=== PATIENT | female | born 1940 | race Caucasian/White ===

== ENCOUNTER 2024-02-10 14:40 | Inpatient (IN) | payer OTHER ==
[~2024-02-10] VITALS: Ht 149.9 cm; Wt 71.0 kg
[~2024-02-10 14:40] MED LIST: AML5T PO; ASCO500T11 PO; FER325T PO; LOSA-534 PO; PANT40TA2 PO; SUCR1TAB31 OR
[2024-02-10 16:51] LABS: Hematocrit 45.5 % (36.0-46.0); Hemoglobin 15.1 g/dL (12.2-16.2); Mean Corpuscular Hemoglobin 29.5 pg (28.0-32.0); Mean Corpuscular Hgb Conc. 33.1 g/dL (32.0-36.0); Mean Corpuscular Volume 89.3 fL (80.0-100.0); Red Cell Distribution Width 16.5 % (11.8-14.3); White Blood Cell 21.7 10^3/uL (4.4-10.8)
[2024-02-10 17:03] LABS: Basophils % (manual) 0 (0.0-2.0); Blast Cells 0; Eosinophils % (manual) 0 (0-7); Metamyelocytes % 0; Myelocytes % 0; Promyelocytes % 0; Reactive Lymphocytes 0
[2024-02-10 17:09] LABS: Alanine Aminotransferase 16 U/L (7-40); Albumin 3.4 g/dL (3.2-4.8); Alkaline Phosphatase 141 U/L (46-116); Anion Gap 9 (5-15); Aspartate Aminotransferase 18 U/L (13-40); BUN/Creatinine Ratio 13.8 (10.0-20.0); Blood Urea Nitrogen 50 mg/dL (9-23); Calcium 9.4 mg/dL (8.5-10.1); Carbon Dioxide 21 mmol/L (20-30); Chloride 97 mmol/L (98-107); Glucose 97 mg/dL (74-106); Potassium 3.9 mmol/L (3.5-5.1); Sodium 127 mmol/L (136-145)
[2024-02-10 17:10] LABS: Bilirubin, Total 0.4 mg/dL (0.2-1.0); Total Protein 5.9 g/dL (5.7-8.2)
[2024-02-10] MEDS: SODIUM CHLORIDE 0.9% 1,000 ML IV ONE (17:45)
[2024-02-10 18:50] VITALS: O2SAT 96
[2024-02-10 18:51] LABS: Band Neutrophils % (manual) 40; Lymphocytes % (manual) 3 (10.0-50.0); Monocytes % (manual) 7 (0-12); Platelet Estimate Increased
[2024-02-10 18:52] LABS: Anisocytosis Slight
[2024-02-10] MEDS: metroNIDAZOLE 500MG/100ML 100 ML IV ONE (19:08)
[2024-02-10] MEDS: cefTRIAXone 1GM/50ML D5W 50 ML IV ONE (19:08)
[2024-02-10] MEDS ORDERED: NITROGLYCERIN 0.4 MG SL TAB SL PRN (19:15)
[2024-02-10] MEDS ORDERED: MORPHINE SULFATE INJ 2 MG/ml SYRG IV PRN (19:15)
[2024-02-10] MEDS ORDERED: HYDROcodone-ACET 5/325MG TAB PO PRN (19:15)
[2024-02-10] MEDS ORDERED: ONDANSETRON HCL 4 MG/2 ML VIAL IV PRN (19:15)
[2024-02-10 20:00] VITALS: PULSE 88; RESP 21; O2SAT 100
[2024-02-10] MEDS: SODIUM CHLORIDE 0.9% 1,000 ML IV SCH (21:13)
[2024-02-10] MEDS: PIPERACILLIN-TAZOB 3.375GM 100 ML IV SCH (22:36)
[2024-02-11] MEDS: SODIUM CHLORIDE 0.9% 1,000 ML IV ONE (00:45)
[2024-02-11 05:43] LABS: Basophils # (auto) 0 10 ^3/uL (0-0.2); Basophils % (auto) 0.2 % (0.0-2.0); Eosinophils # (auto) 0 10 ^3/uL (0-0.8); Eosinophils % (auto) 0.4 % (0.0-7.0); Hematocrit 43.4 % (36.0-46.0); Hemoglobin 14.3 g/dL (12.2-16.2); Lymphocytes # (auto) 1.1 10 ^3/uL (0.4-5.4); Lymphocytes % (auto) 8.6 % (10.0-50.0); Mean Corpuscular Hgb Conc. 32.9 g/dL (32.0-36.0); Mean Corpuscular Volume 88.2 fL (80.0-100.0); Monocytes # (auto) 1.2 10 ^3/uL (0-1.3); Monocytes % (auto) 9.1 % (0.0-12.0); Neutrophils # (auto) 10.6 10 ^3/uL (1.6-8.6); Neutrophils % (auto) 81.7 % (37.0-80.0); Red Blood Cells 4.92 10^6/uL (4.0-5.20); Red Cell Distribution Width 16.8 % (11.8-14.3)
[2024-02-11 06:06] LABS: Alanine Aminotransferase 14 U/L (7-40); Albumin 2.6 g/dL (3.2-4.8); Alkaline Phosphatase 106 U/L (46-116); Anion Gap 9 (5-15); Aspartate Aminotransferase 13 U/L (13-40); BUN/Creatinine Ratio 17.9 (10.0-20.0); Bilirubin, Total 0.3 mg/dL (0.2-1.0); Blood Urea Nitrogen 52 mg/dL (9-23); Calcium 8.2 mg/dL (8.5-10.1); Carbon Dioxide 18 mmol/L (20-30); Chloride 105 mmol/L (98-107); Glucose 78 mg/dL (74-106); Potassium 3.3 mmol/L (3.5-5.1); Total Protein 4.5 g/dL (5.7-8.2)
[2024-02-11 06:18] LABS: Sodium 132 mmol/L (136-145)
[2024-02-11 06:49] LABS: Anisocytosis Slight; Platelet Estimate Adequate
[2024-02-11] MEDS: D5W/SOD CHLO 0.9% 1,000 ML IV SCH (08:45)
[2024-02-11] MEDS: PANTOPRAZOLE 40 MG/10 ML VIAL INJ IV SCH (10:14)
[2024-02-11] MEDS: POTASSIUM CHL 20MEQ/100ML 100 ML IV ONE (10:15)
[2024-02-11] MEDS: metroNIDAZOLE 500MG/100ML 100 ML IV SCH (14:31)
[2024-02-11] MEDS: LORazepam 2MG/ML-1ML VIAL IV PRN (15:28)
[2024-02-11] MEDS: SODIUM CHLORIDE 0.9% 500 ML IV ONE (15:50)
[2024-02-11 17:00] VITALS: BP 119/62; PULSE 97; RESP 18; TEMP 97.3; O2SAT 91
[2024-02-11 17:41] VITALS: BP 119/62; PULSE 97; RESP 18; TEMP 97.3; O2SAT 91
[2024-02-11] MEDS: VANCOMYCIN HCL 125 MG CAP PO SCH (18:14)
[2024-02-11 20:00] VITALS: PULSE 74
[2024-02-11 21:00] VITALS: BP 123/46; PULSE 88; RESP 18; TEMP 97; O2SAT 94
[2024-02-12] VITALS (8 sets, daily range): BP systolic 108–120; BP diastolic 49–62; PULSE 65–103; RESP 17–20; TEMP 96.5–98.5; O2SAT 92–97
[2024-02-12 11:57] LABS: Basophils # (auto) 0 10 ^3/uL (0-0.2); Basophils % (auto) 0.3 % (0.0-2.0); Eosinophils # (auto) 0 10 ^3/uL (0-0.8); Eosinophils % (auto) 0.5 % (0.0-7.0); Hematocrit 41.2 % (36.0-46.0); Hemoglobin 13.6 g/dL (12.2-16.2); Lymphocytes % (auto) 10.9 % (10.0-50.0); Mean Corpuscular Hemoglobin 29.5 pg (28.0-32.0); Mean Corpuscular Hgb Conc. 33.1 g/dL (32.0-36.0); Mean Corpuscular Volume 89.2 fL (80.0-100.0); Monocytes # (auto) 0.5 10 ^3/uL (0-1.3); Monocytes % (auto) 5.5 % (0.0-12.0); Neutrophils # (auto) 7.4 10 ^3/uL (1.6-8.6); Neutrophils % (auto) 82.8 % (37.0-80.0); Nucleated Red Blood Cells % 0.1 %; Red Blood Cells 4.62 10^6/uL (4.0-5.20); Red Cell Distribution Width 16.7 % (11.8-14.3)
[2024-02-13] VITALS (9 sets, daily range): BP systolic 114–145; BP diastolic 51–78; PULSE 88–104; RESP 17–21; TEMP 97.6–99.5; O2SAT 90–96
[2024-02-13 05:47] LABS: Hematocrit 38.1 % (36.0-46.0); Hemoglobin 12.8 g/dL (12.2-16.2); Mean Corpuscular Hemoglobin 29.6 pg (28.0-32.0); Mean Corpuscular Hgb Conc. 33.4 g/dL (32.0-36.0); Mean Corpuscular Volume 88.6 fL (80.0-100.0); Red Cell Distribution Width 16.6 % (11.8-14.3); White Blood Cell 12.1 10^3/uL (4.4-10.8)
[2024-02-13 05:52] LABS: Basophils % (manual) 0 (0.0-2.0); Blast Cells 0; Eosinophils % (manual) 0 (0-7); Myelocytes % 0; Promyelocytes % 0; Reactive Lymphocytes 0
[2024-02-13 05:54] LABS: Alanine Aminotransferase 11 U/L (7-40); Alkaline Phosphatase 82 U/L (46-116); Anion Gap 8 (5-15); BUN/Creatinine Ratio 17.9 (10.0-20.0); Blood Urea Nitrogen 21 mg/dL (9-23); Calcium 8.3 mg/dL (8.7-10.4); Carbon Dioxide 19 mmol/L (20-30); Chloride 114 mmol/L (98-107); Glucose 99 mg/dL (74-106); Magnesium 1.7 mg/dL (1.6-2.6); Potassium 3.1 mmol/L (3.5-5.1); Sodium 141 mmol/L (136-145)
[2024-02-13 05:55] LABS: Albumin 2.2 g/dL (3.2-4.8); Aspartate Aminotransferase 11 U/L (13-40)
[2024-02-13 05:56] LABS: Bilirubin, Total 0.3 mg/dL (0.2-1.0); Total Protein 3.9 g/dL (5.7-8.2)
[2024-02-13 06:41] LABS: Band Neutrophils % (manual) 19; Lymphocytes % (manual) 13 (10.0-50.0); Metamyelocytes % 1; Monocytes % (manual) 8 (0-12); Platelet Estimate Adequate
[2024-02-13] MEDS: POTASSIUM CHL 20 Meq TABLET PO ONE (17:42)
[2024-02-14] VITALS (9 sets, daily range): BP systolic 120–148; BP diastolic 61–82; PULSE 76–101; RESP 15–20; TEMP 79.8–98; O2SAT 94–98
[2024-02-14 11:55] LABS: Hematocrit 40.7 % (36.0-46.0); Hemoglobin 13.5 g/dL (12.2-16.2); Mean Corpuscular Hemoglobin 29.4 pg (28.0-32.0); Mean Corpuscular Hgb Conc. 33.2 g/dL (32.0-36.0); Mean Corpuscular Volume 88.7 fL (80.0-100.0); Red Blood Cells 4.59 10^6/uL (4.0-5.20); Red Cell Distribution Width 16.9 % (11.8-14.3); White Blood Cell 12.2 10^3/uL (4.4-10.8)
[2024-02-14 12:01] LABS: Basophils % (manual) 0 (0.0-2.0); Blast Cells 0; Eosinophils % (manual) 0 (0-7); Metamyelocytes % 0; Promyelocytes % 0; Reactive Lymphocytes 0
[2024-02-14 12:05] LABS: Chloride 117 mmol/L (98-107); Potassium 3.5 mmol/L (3.5-5.1); Sodium 142 mmol/L (136-145)
[2024-02-14 12:06] LABS: Anion Gap 4 (5-15); Calcium 8.2 mg/dL (8.5-10.1); Carbon Dioxide 21 mmol/L (20-30)
[2024-02-14 12:11] LABS: BUN/Creatinine Ratio 12.5 (10.0-20.0); Blood Urea Nitrogen 11 mg/dL (9-23); Glucose 121 mg/dL (74-106)
[2024-02-14 12:14] LABS: Band Neutrophils % (manual) 9; Lymphocytes % (manual) 28 (10.0-50.0); Monocytes % (manual) 7 (0-12); Myelocytes % 1; Platelet Estimate Adequate
[2024-02-14] MEDS: FLORASTOR (S. BOULARDII) 250 MG CAP PO SCH (14:43)
[2024-02-15] VITALS (8 sets, daily range): BP systolic 124–149; BP diastolic 67–91; PULSE 74–99; RESP 16–17; TEMP 98.1–98.6; O2SAT 92–95
[2024-02-15 06:07] LABS: Hematocrit 38.7 % (36.0-46.0); Hemoglobin 12.9 g/dL (12.2-16.2); Mean Corpuscular Hemoglobin 29.8 pg (28.0-32.0); Mean Corpuscular Hgb Conc. 33.3 g/dL (32.0-36.0); Mean Corpuscular Volume 89.6 fL (80.0-100.0); Red Blood Cells 4.32 10^6/uL (4.0-5.20); Red Cell Distribution Width 16.3 % (11.8-14.3); White Blood Cell 11.9 10^3/uL (4.4-10.8)
[2024-02-15 06:19] LABS: Calcium 8.1 mg/dL (8.7-10.4); Chloride 115 mmol/L (98-107); Potassium 3.6 mmol/L (3.5-5.1); Sodium 141 mmol/L (136-145)
[2024-02-15 06:20] LABS: Anion Gap 6 (5-15); Carbon Dioxide 20 mmol/L (20-30)
[2024-02-15 06:25] LABS: Glucose 101 mg/dL (74-106)
[2024-02-15 06:31] LABS: Band Neutrophils % (manual) 0; Basophils % (manual) 0 (0.0-2.0); Blast Cells 0; Promyelocytes % 0; Reactive Lymphocytes 0
[2024-02-15 07:16] LABS: Blood Urea Nitrogen 8 mg/dL (9-23)
[2024-02-15 08:51] LABS: Eosinophils % (manual) 3 (0-7); Lymphocytes % (manual) 17 (10.0-50.0); Metamyelocytes % 1; Monocytes % (manual) 6 (0-12); Myelocytes % 8; Platelet Estimate Adequate
[2024-02-16] VITALS (9 sets, daily range): BP systolic 133–156; BP diastolic 66–78; PULSE 17–99; RESP 16–97; TEMP 36.7; O2SAT 92–97
[2024-02-16 06:36] LABS: Anion Gap 3 (5-15); Carbon Dioxide 20 mmol/L (20-30); Chloride 116 mmol/L (98-107); Potassium 3.8 mmol/L (3.5-5.1); Sodium 139 mmol/L (136-145)
[2024-02-16 06:42] LABS: BUN/Creatinine Ratio 7.7 (10.0-20.0); Blood Urea Nitrogen 7 mg/dL (9-23); Glucose 121 mg/dL (74-106)
[2024-02-16 07:15] LABS: Hematocrit 39.7 % (36.0-46.0); Hemoglobin 12.6 g/dL (12.2-16.2); Mean Corpuscular Hemoglobin 29.5 pg (28.0-32.0); Mean Corpuscular Hgb Conc. 31.8 g/dL (32.0-36.0); Mean Corpuscular Volume 92.9 fL (80.0-100.0); Red Blood Cells 4.27 10^6/uL (4.0-5.20); Red Cell Distribution Width 16.9 % (11.8-14.3)
[2024-02-16 07:30] LABS: Basophils % (manual) 0 (0.0-2.0); Blast Cells 0; Myelocytes % 0; Promyelocytes % 0; Reactive Lymphocytes 0
[2024-02-16 08:13] LABS: Band Neutrophils % (manual) 11; Eosinophils % (manual) 2 (0-7); Lymphocytes % (manual) 20 (10.0-50.0); Metamyelocytes % 3; Monocytes % (manual) 8 (0-12)
[2024-02-16 08:14] LABS: Platelet Estimate Adequate
[2024-02-16] MEDS ORDERED: METR-344 PO (12:14)
[2024-02-16] MEDS ORDERED: VANC125C3 PO (12:14)
[2024-02-16] MEDS ORDERED: SACC250C PO (12:14)
[2024-02-16] MEDS: ACETAMINOPHEN 325 MG TAB PO PRN (23:07)
[2024-02-17] VITALS (8 sets, daily range): BP systolic 136–154; BP diastolic 65–95; PULSE 77–103; RESP 16–18; TEMP 97.7–98.3; O2SAT 92–96
[2024-02-17 06:18] LABS: Chloride 113 mmol/L (98-107); Potassium 3.5 mmol/L (3.5-5.1); Sodium 140 mmol/L (136-145)
[2024-02-17 06:19] LABS: Anion Gap 5 (5-15); Carbon Dioxide 22 mmol/L (20-30)
[2024-02-17 06:20] LABS: Calcium 8.3 mg/dL (8.5-10.1)
[2024-02-17 06:24] LABS: Glucose 118 mg/dL (74-106)
[2024-02-17 06:32] LABS: BUN/Creatinine Ratio 6.8 (10.0-20.0); Blood Urea Nitrogen < 5 mg/dL (9-23)
[2024-02-17 06:46] LABS: Hemoglobin 14.1 g/dL (12.2-16.2); White Blood Cell 10.5 10^3/uL (4.4-10.8)
[2024-02-17 07:20] LABS: Mean Corpuscular Hemoglobin 29.4 pg (28.0-32.0); Mean Corpuscular Hgb Conc. 32.1 g/dL (32.0-36.0); Mean Corpuscular Volume 91.6 fL (80.0-100.0); Red Cell Distribution Width 17.1 % (11.8-14.3)
[2024-02-17 07:22] LABS: Band Neutrophils % (manual) 0; Basophils % (manual) 0 (0.0-2.0); Blast Cells 0; Metamyelocytes % 0; Myelocytes % 0; Promyelocytes % 0; Reactive Lymphocytes 0
[2024-02-17 07:39] LABS: Eosinophils % (manual) 4 (0-7); Lymphocytes % (manual) 10 (10.0-50.0); Monocytes % (manual) 6 (0-12); Platelet Estimate Adequate
[2024-02-17 07:40] LABS: RBC Morphology Normal
[2024-02-18] VITALS (8 sets, daily range): BP systolic 120–191; BP diastolic 62–108; PULSE 84–101; RESP 17–20; TEMP 97.4–98; O2SAT 93–98
[2024-02-19] VITALS (7 sets, daily range): BP systolic 139–155; BP diastolic 80–88; PULSE 82–98; RESP 16–18; TEMP 97.5–98; O2SAT 93–96
[2024-02-19 13:49] LABS: Basophils # (auto) 0.1 10 ^3/uL (0-0.2); Basophils % (auto) 0.7 % (0.0-2.0); Eosinophils # (auto) 0.1 10 ^3/uL (0-0.8); Eosinophils % (auto) 0.7 % (0.0-7.0); Hematocrit 40.3 % (36.0-46.0); Hemoglobin 13.5 g/dL (12.2-16.2); Lymphocytes # (auto) 0.9 10 ^3/uL (0.4-5.4); Lymphocytes % (auto) 8.9 % (10.0-50.0); Mean Corpuscular Hemoglobin 29.6 pg (28.0-32.0); Mean Corpuscular Hgb Conc. 33.4 g/dL (32.0-36.0); Mean Corpuscular Volume 88.6 fL (80.0-100.0); Monocytes # (auto) 0.7 10 ^3/uL (0-1.3); Monocytes % (auto) 6.8 % (0.0-12.0); Neutrophils # (auto) 8.5 10 ^3/uL (1.6-8.6); Neutrophils % (auto) 82.9 % (37.0-80.0); Nucleated Red Blood Cells % 0.2 %; Red Blood Cells 4.55 10^6/uL (4.0-5.20); Red Cell Distribution Width 16.6 % (11.8-14.3); White Blood Cell 10.2 10^3/uL (4.4-10.8)
[2024-02-19 14:02] LABS: Alanine Aminotransferase 14 U/L (7-40); Alkaline Phosphatase 92 U/L (46-116); Anion Gap 3 (5-15); Aspartate Aminotransferase 17 U/L (13-40); BUN/Creatinine Ratio 10.4 (10.0-20.0); Blood Urea Nitrogen 7 mg/dL (9-23); Calcium 8.3 mg/dL (8.5-10.1); Carbon Dioxide 28 mmol/L (20-30); Chloride 109 mmol/L (98-107); Glucose 151 mg/dL (74-106); Potassium 3.4 mmol/L (3.5-5.1); Sodium 140 mmol/L (136-145)
[2024-02-19 14:03] LABS: Albumin 2.6 g/dL (3.2-4.8); Bilirubin, Total 0.2 mg/dL (0.2-1.0); Total Protein 4.4 g/dL (5.7-8.2)
[2024-02-19] MEDS: POTASSIUM CHL 20 Meq TABLET PO ONE (15:35)
[2024-02-20] VITALS (7 sets, daily range): BP systolic 145–166; BP diastolic 83–93; PULSE 83–109; RESP 16–20; TEMP 97.3–97.7; O2SAT 94–98
[2024-02-20 11:45] LABS: Basophils # (auto) 0.1 10 ^3/uL (0-0.2); Basophils % (auto) 0.5 % (0.0-2.0); Eosinophils # (auto) 0.1 10 ^3/uL (0-0.8); Eosinophils % (auto) 0.6 % (0.0-7.0); Hematocrit 38.5 % (36.0-46.0); Hemoglobin 12.5 g/dL (12.2-16.2); Lymphocytes % (auto) 9.1 % (10.0-50.0); Mean Corpuscular Hemoglobin 30.2 pg (28.0-32.0); Mean Corpuscular Hgb Conc. 32.5 g/dL (32.0-36.0); Mean Corpuscular Volume 92.7 fL (80.0-100.0); Monocytes # (auto) 0.9 10 ^3/uL (0-1.3); Monocytes % (auto) 8.9 % (0.0-12.0); Neutrophils # (auto) 8.5 10 ^3/uL (1.6-8.6); Neutrophils % (auto) 80.9 % (37.0-80.0); Red Blood Cells 4.15 10^6/uL (4.0-5.20); Red Cell Distribution Width 16.6 % (11.8-14.3); White Blood Cell 10.5 10^3/uL (4.4-10.8)
[2024-02-20 12:05] LABS: Alanine Aminotransferase 13 U/L (7-40); Albumin 2.3 g/dL (3.2-4.8); Alkaline Phosphatase 80 U/L (46-116); Anion Gap 4 (5-15); Aspartate Aminotransferase 23 U/L (13-40); BUN/Creatinine Ratio 8.8 (10.0-20.0); Blood Urea Nitrogen 6 mg/dL (9-23); Calcium 8.1 mg/dL (8.5-10.1); Carbon Dioxide 24 mmol/L (20-30); Chloride 112 mmol/L (98-107); Glucose 113 mg/dL (74-106); Potassium 4.5 mmol/L (3.5-5.1); Sodium 140 mmol/L (136-145)
[2024-02-20 12:06] LABS: Bilirubin, Total < 0.2 mg/dL (0.2-1.0)
[2024-02-21] VITALS (7 sets, daily range): BP systolic 120–170; BP diastolic 44–98; PULSE 49–117; RESP 15–19; TEMP 97.4–98.8; O2SAT 93–98
[2024-02-21] MEDS ORDERED: SUMAtriptan SUCCINATE 25 MG TAB PO PRN (08:30)
[2024-02-21] MEDS: LOSARTAN POTASSIUM 50 MG TAB PO SCH (12:17)
[2024-02-21] MEDS: CHOLESTYRAMINE 4 GM POWDER PO SCH (13:49)
[2024-02-22 05:00] VITALS: BP 148/90; PULSE 97; RESP 18; TEMP 98; O2SAT 93
[2024-02-22 08:05] VITALS: PULSE 104
[2024-02-22 09:00] VITALS: BP 159/84; PULSE 105; RESP 18; TEMP 97.4; O2SAT 93
[2024-02-22 13:00] VITALS: BP 152/86; PULSE 102; RESP 18; TEMP 97.7; O2SAT 95
[2024-02-22 14:25] VITALS: BP 152/86; PULSE 102; RESP 18; TEMP 97.7; O2SAT 95
== END 2024-02-22 17:20 | disposition home health service (06) | DRG 871 ==
LOC: ER 14:40 → TELE 19:09 → TELE-CENTR 02-11 17:03
PROVIDERS: ADMIT Internal Medicine; ATTEND Internal Medicine
PROC: 05HA33Z Insertion of Infusion Device into Left Brachial Vein, Percutaneous Approach (ICD-10-PCS; principal; 2024-02-15)
PROC: B54NZZA Ultrasonography of Left Upper Extremity Veins, Guidance (ICD-10-PCS; 2024-02-15)
DX: A41.9 Sepsis, unspecified organism (principal); N17.0 Acute kidney failure with tubular necrosis; A04.72 Enterocolitis due to Clostridium difficile, not specified as recurrent; E87.1 Hypo-osmolality and hyponatremia; I42.9 Cardiomyopathy, unspecified; E86.0 Dehydration; E87.6 Hypokalemia; I12.9 Hypertensive chronic kidney disease with stage 1 through stage 4 chronic kidney disease, or unspecified chronic kidney disease; I27.20 Pulmonary hypertension, unspecified; K80.20 Calculus of gallbladder without cholecystitis without obstruction; N18.9 Chronic kidney disease, unspecified; Z82.61 Family history of arthritis; Z82.49 Family history of ischemic heart disease and other diseases of the circulatory system
CPT/HCPCS: 36415; 74176; 76705; 80048; 80053; 82962; 83605; 83735; 85007; 85025; 85027; 86850; 86900; 86901; 87081; 87493; 93005; 96361; 96365; 96367; 96368; 96375; 97110; 97116; 97163; 97530; C9113; G0378; J2543; J3480; J3490; J7042

== ENCOUNTER 2024-02-23 21:41 | Inpatient (IN) | payer OTHER ==
[~2024-02-23] VITALS: Ht 149.9 cm; Wt 66.0 kg
[~2024-02-23 21:41] MED LIST changes: +SACC250C PO
[2024-02-23 22:49] LABS: Hematocrit 37.8 % (36.0-46.0); Hemoglobin 12.5 g/dL (12.2-16.2); Mean Corpuscular Hemoglobin 29.9 pg (28.0-32.0); Mean Corpuscular Hgb Conc. 33.2 g/dL (32.0-36.0); Mean Corpuscular Volume 90.1 fL (80.0-100.0); Red Blood Cells 4.19 10^6/uL (4.0-5.20); Red Cell Distribution Width 16.5 % (11.8-14.3); White Blood Cell 11.2 10^3/uL (4.4-10.8)
[2024-02-23 22:52] LABS: Basophils % (manual) 0 (0.0-2.0); Blast Cells 0; Metamyelocytes % 0; Myelocytes % 0; Promyelocytes % 0; Reactive Lymphocytes 0
[2024-02-23 22:53] LABS: Chloride 109 mmol/L (98-107); Potassium 3.9 mmol/L (3.5-5.1); Sodium 143 mmol/L (136-145)
[2024-02-23 22:54] LABS: Anion Gap 4 (5-15); Carbon Dioxide 30 mmol/L (20-30)
[2024-02-23 22:55] VITALS: PULSE 101; RESP 18; O2SAT 94
[2024-02-23 22:55] LABS: Calcium 9.3 mg/dL (8.5-10.1)
[2024-02-23 22:59] LABS: Glucose 113 mg/dL (74-106)
[2024-02-23 23:00] LABS: BUN/Creatinine Ratio 11.9 (10.0-20.0); Blood Urea Nitrogen 10 mg/dL (9-23)
[2024-02-23 23:02] LABS: Band Neutrophils % (manual) 4; Eosinophils % (manual) 2 (0-7); Lymphocytes % (manual) 15 (10.0-50.0); Monocytes % (manual) 10 (0-12); Platelet Estimate Adequate
[2024-02-23] MEDS: FUROSEMIDE 20 MG/2 ML VIAL IV ONE (23:12)
[2024-02-23] MEDS ORDERED: MORPHINE SULFATE INJ 2 MG/ml SYRG IV PRN (23:15)
[2024-02-23] MEDS ORDERED: ONDANSETRON HCL 4 MG/2 ML VIAL IV PRN (23:15)
[2024-02-23] MEDS ORDERED: HYDROcodone-ACET 5/325MG TAB PO PRN (23:15)
[2024-02-23] MEDS ORDERED: NITROGLYCERIN 0.4 MG SL TAB SL PRN (23:15)
[2024-02-24] VITALS (9 sets, daily range): BP systolic 131–147; BP diastolic 76–84; PULSE 66–103; RESP 15–18; TEMP 97.2–98.4; O2SAT 92–98
[2024-02-24 06:51] LABS: Basophils # (auto) 0.1 10 ^3/uL (0-0.2); Basophils % (auto) 1.4 % (0.0-2.0); Eosinophils # (auto) 0.1 10 ^3/uL (0-0.8); Hematocrit 35.5 % (36.0-46.0); Lymphocytes # (auto) 1.1 10 ^3/uL (0.4-5.4); Lymphocytes % (auto) 11.5 % (10.0-50.0); Mean Corpuscular Hemoglobin 30.3 pg (28.0-32.0); Mean Corpuscular Hgb Conc. 33.7 g/dL (32.0-36.0); Mean Corpuscular Volume 89.8 fL (80.0-100.0); Monocytes # (auto) 0.8 10 ^3/uL (0-1.3); Neutrophils # (auto) 7.2 10 ^3/uL (1.6-8.6); Neutrophils % (auto) 77.1 % (37.0-80.0); Red Blood Cells 3.96 10^6/uL (4.0-5.20); Red Cell Distribution Width 16.8 % (11.8-14.3); White Blood Cell 9.4 10^3/uL (4.4-10.8)
[2024-02-24 07:14] LABS: Alanine Aminotransferase 15 U/L (7-40); Albumin 2.7 g/dL (3.2-4.8); Alkaline Phosphatase 119 U/L (46-116); Anion Gap 3 (5-15); Aspartate Aminotransferase 21 U/L (13-40); BUN/Creatinine Ratio 11.5 (10.0-20.0); Bilirubin, Total 0.3 mg/dL (0.2-1.0); Blood Urea Nitrogen 10 mg/dL (9-23); Calcium 8.9 mg/dL (8.5-10.1); Carbon Dioxide 31 mmol/L (20-30); Chloride 108 mmol/L (98-107); Glucose 107 mg/dL (74-106); Potassium 3.8 mmol/L (3.5-5.1); Sodium 142 mmol/L (136-145); Total Protein 4.7 g/dL (5.7-8.2)
[2024-02-24] MEDS ORDERED: FUROSEMIDE 20 MG TAB PO SCH (10:00)
[2024-02-24] MEDS: FLORASTOR (S. BOULARDII) 250 MG CAP PO SCH (10:09)
[2024-02-24] MEDS: FUROSEMIDE 40 MG/4 ML VIAL IV SCH (10:10)
[2024-02-24] MEDS: ENOXAPARIN SOD 40 MG/0.4 ML SYRINGE SC SCH (10:11)
[2024-02-24] MEDS: LORazepam 0.5 MG TAB PO PRN (22:17)
[2024-02-25] VITALS (7 sets, daily range): BP systolic 116–174; BP diastolic 66–85; PULSE 80–107; RESP 18–19; TEMP 97.3–97.7; O2SAT 92–98
[2024-02-25] MEDS: hydrALAZINE HCL 20 MG/ML VL IV PRN (05:44)
[2024-02-25 06:44] LABS: Basophils # (auto) 0.1 10 ^3/uL (0-0.2); Eosinophils # (auto) 0.5 10 ^3/uL (0-0.8); Eosinophils % (auto) 6.3 % (0.0-7.0); Hematocrit 40.2 % (36.0-46.0); Hemoglobin 13.3 g/dL (12.2-16.2); Lymphocytes # (auto) 1.5 10 ^3/uL (0.4-5.4); Lymphocytes % (auto) 20.4 % (10.0-50.0); Mean Corpuscular Hgb Conc. 33.1 g/dL (32.0-36.0); Mean Corpuscular Volume 93.5 fL (80.0-100.0); Monocytes # (auto) 0.7 10 ^3/uL (0-1.3); Monocytes % (auto) 9.9 % (0.0-12.0); Neutrophils # (auto) 4.6 10 ^3/uL (1.6-8.6); Neutrophils % (auto) 62.4 % (37.0-80.0); Nucleated Red Blood Cells % 0.1 %; Red Cell Distribution Width 16.8 % (11.8-14.3); White Blood Cell 7.4 10^3/uL (4.4-10.8)
[2024-02-25 06:50] LABS: Alanine Aminotransferase 15 U/L (7-40); Albumin 2.6 g/dL (3.2-4.8); Alkaline Phosphatase 115 U/L (46-116); Anion Gap 4 (5-15); Aspartate Aminotransferase 20 U/L (13-40); BUN/Creatinine Ratio 10.1 (10.0-20.0); Bilirubin, Total 0.3 mg/dL (0.2-1.0); Blood Urea Nitrogen 8 mg/dL (9-23); Calcium 8.9 mg/dL (8.7-10.4); Carbon Dioxide 30 mmol/L (20-30); Chloride 104 mmol/L (98-107); Glucose 87 mg/dL (74-106); Potassium 3.7 mmol/L (3.5-5.1); Sodium 138 mmol/L (136-145); Total Protein 4.9 g/dL (5.7-8.2)
[2024-02-25 08:43] LABS: Urine Bacteria None Seen /hpf (None Seen)
[2024-02-25 08:51] LABS: Urine Blood Negative /uL (Negative); Urine Clarity Clear (Clear); Urine Color Straw (Yellow); Urine Protein, UAD Negative (Negative); Urine Specific Gravity 1.005 (1.001-1.035); Urine Urobilinogen Normal (Negative); Urine WBC <1 /hpf (0 - 5); Urine pH 7.5 (5.0-9.0)
[2024-02-25] MEDS: amLODIPine BESYLATE 5 MG TAB PO SCH (11:08)
[2024-02-25] MEDS: Ensure HIGH Protein Chocolate 8oz Bottle PO SCH (18:30)
[2024-02-25] MEDS: ACETAMINOPHEN 325 MG TAB PO PRN (21:16)
[2024-02-26] VITALS (7 sets, daily range): BP systolic 120–147; BP diastolic 66–93; PULSE 95–104; RESP 16–22; TEMP 96.9–97.9; O2SAT 94–97
[2024-02-27] VITALS (9 sets, daily range): BP systolic 110–123; BP diastolic 53–78; PULSE 77–111; RESP 18–20; TEMP 97.3–98.1; O2SAT 92–97
[2024-02-28] VITALS (8 sets, daily range): BP systolic 115–130; BP diastolic 57–79; PULSE 70–118; RESP 16–20; TEMP 97.8–99; O2SAT 91–94
[2024-02-28 11:29] LABS: Alanine Aminotransferase 20 U/L (7-40); Albumin 3.5 g/dL (3.2-4.8); Alkaline Phosphatase 144 U/L (46-116); Anion Gap 4 (5-15); Aspartate Aminotransferase 19 U/L (13-40); BUN/Creatinine Ratio 24.1 (10.0-20.0); Blood Urea Nitrogen 27 mg/dL (9-23); Calcium 9.4 mg/dL (8.5-10.1); Carbon Dioxide 35 mmol/L (20-30); Chloride 100 mmol/L (98-107); Glucose 116 mg/dL (74-106); Potassium 3.5 mmol/L (3.5-5.1); Sodium 139 mmol/L (136-145)
[2024-02-28 11:31] LABS: Bilirubin, Total 0.2 mg/dL (0.2-1.0); Total Protein 6.1 g/dL (5.7-8.2)
[2024-02-29] VITALS (7 sets, daily range): BP systolic 90–138; BP diastolic 59–80; PULSE 55–128; RESP 18–20; TEMP 97.8–98.6; O2SAT 82–96
[2024-02-29] MEDS: APIXABAN 5 MG TAB PO SCH (10:22)
[2024-02-29 21:02] LABS: Chloride 94 mmol/L (98-107); Potassium 4.2 mmol/L (3.5-5.1)
[2024-02-29 21:03] LABS: Anion Gap 6 (5-15); Calcium 9.8 mg/dL (8.5-10.1); Carbon Dioxide 31 mmol/L (20-30)
[2024-02-29 21:08] LABS: BUN/Creatinine Ratio 26.8 (10.0-20.0); Glucose 110 mg/dL (74-106)
[2024-02-29 21:09] LABS: Magnesium 2.2 mg/dL (1.6-2.6)
[2024-02-29 21:11] LABS: Sodium 131 mmol/L (136-145)
[2024-02-29 21:12] LABS: Blood Urea Nitrogen 38 mg/dL (9-23)
[2024-02-29] MEDS: METOPROLOL TARTRATE 25 MG TAB PO SCH (22:14)
[2024-02-29] MEDS: SODIUM CHLORIDE 0.9% 1,000 ML IV SCH (22:14)
[2024-02-29] MEDS: LOPERAMIDE HCL 2 MG CAP/TAB PO PRN (22:15)
[2024-03-01 01:00] VITALS: BP 99/58; PULSE 85; RESP 18; TEMP 97.9; O2SAT 98
[2024-03-01 05:00] VITALS: BP 108/59; PULSE 84; RESP 17; TEMP 98; O2SAT 98
[2024-03-01 07:30] VITALS: PULSE 81; RESP 18
[2024-03-01 09:00] VITALS: BP 111/53; PULSE 82; RESP 17; TEMP 98.1; O2SAT 96
[2024-03-01 11:01] LABS: Alanine Aminotransferase 17 U/L (7-40); Albumin 2.8 g/dL (3.2-4.8); Alkaline Phosphatase 108 U/L (46-116); Anion Gap 6 (5-15); Aspartate Aminotransferase 15 U/L (13-40); BUN/Creatinine Ratio 25.6 (10.0-20.0); Bilirubin, Total 0.4 mg/dL (0.2-1.0); Blood Urea Nitrogen 34 mg/dL (9-23); Calcium 8.9 mg/dL (8.5-10.1); Carbon Dioxide 30 mmol/L (20-30); Chloride 98 mmol/L (98-107); Glucose 94 mg/dL (74-106); Potassium 3.8 mmol/L (3.5-5.1); Sodium 134 mmol/L (136-145)
[2024-03-01] MEDS ORDERED: APIX5TAB PO (12:50)
[2024-03-01] MEDS ORDERED: AMLO1TAB22 PO (12:50)
[2024-03-01] MEDS ORDERED: FURO20TA3 PO (12:51)
[2024-03-01] MEDS ORDERED: MET25T PO (12:51)
[2024-03-01 13:00] VITALS: BP 105/55; PULSE 72; RESP 17; TEMP 97.9; O2SAT 99
[2024-03-01] MEDS ORDERED: IOHEXOL 350 MG/ML 100ML IJ ONE (13:01)
[2024-03-01 13:37] VITALS: BP 99/58; PULSE 85; RESP 18; TEMP 36.7; O2SAT 96
[2024-03-07] MEDS ORDERED: APIXABAN 5 MG TAB PO SCH (10:00)
== END 2024-03-01 17:54 | disposition home or self-care (01) | DRG 291 ==
LOC: ER 21:41 → EDBD 21:41 → OVERFLOW 23:15 → EAST 23:15 → TELE-EAST 02-25 01:08
PROVIDERS: ADMIT Nurse Practitioner; ATTEND Nurse Practitioner
DX: I13.0 Hypertensive heart and chronic kidney disease with heart failure and stage 1 through stage 4 chronic kidney disease, or unspecified chronic kidney disease (principal); I50.33 Acute on chronic diastolic (congestive) heart failure; J96.01 Acute respiratory failure with hypoxia; I82.432 Acute embolism and thrombosis of left popliteal vein; I27.20 Pulmonary hypertension, unspecified; M06.9 Rheumatoid arthritis, unspecified; N18.9 Chronic kidney disease, unspecified; K80.20 Calculus of gallbladder without cholecystitis without obstruction; I08.1 Rheumatic disorders of both mitral and tricuspid valves; Z79.899 Other long term (current) drug therapy; Z86.19 Personal history of other infectious and parasitic diseases; Z82.49 Family history of ischemic heart disease and other diseases of the circulatory system
CPT/HCPCS: 36415; 71045; 71275; 73560; 80048; 80053; 81001; 83735; 83880; 84484; 85007; 85025; 85027; 86431; 87081; 93005; 93970; 96374; 97110; 97116; 97163; 97530; G0378

== ENCOUNTER 2024-03-06 06:09 | Inpatient (IN) | payer OTHER ==
[~2024-03-06] VITALS: Ht 149.9 cm; Wt 72.0 kg
[~2024-03-06 06:09] MED LIST changes: -AML5T PO; +AMLO1TAB22 PO; +APIX5TAB PO; +FURO20TA3 PO; -LOSA-534 PO; +MET25T PO
[2024-03-06 07:14] LABS: Basophils # (auto) 0.1 10 ^3/uL (0-0.2); Basophils % (auto) 0.9 % (0.0-2.0); Eosinophils # (auto) 0.3 10 ^3/uL (0-0.8); Eosinophils % (auto) 2.5 % (0.0-7.0); Hematocrit 39.9 % (36.0-46.0); Hemoglobin 13.6 g/dL (12.2-16.2); Lymphocytes # (auto) 1.5 10 ^3/uL (0.4-5.4); Lymphocytes % (auto) 13.3 % (10.0-50.0); Mean Corpuscular Hemoglobin 30.7 pg (28.0-32.0); Mean Corpuscular Hgb Conc. 34.1 g/dL (32.0-36.0); Mean Corpuscular Volume 90.1 fL (80.0-100.0); Monocytes # (auto) 1.6 10 ^3/uL (0-1.3); Neutrophils % (auto) 69.3 % (37.0-80.0); Nucleated Red Blood Cells % 0.3 %; Red Blood Cells 4.43 10^6/uL (4.0-5.20); Red Cell Distribution Width 15.5 % (11.8-14.3); White Blood Cell 11.5 10^3/uL (4.4-10.8)
[2024-03-06 07:29] LABS: INR 1.25 (0.9-1.15); Partial Thromboplastin Time 41.5 SEC (24.5-34.5)
[2024-03-06 07:42] LABS: Chloride 96 mmol/L (98-107); Potassium 3.3 mmol/L (3.5-5.1); Sodium 132 mmol/L (136-145)
[2024-03-06 07:43] LABS: Anion Gap 8 (5-15); Calcium 9.4 mg/dL (8.5-10.1); Carbon Dioxide 28 mmol/L (20-30)
[2024-03-06 07:48] LABS: Blood Urea Nitrogen 60 mg/dL (9-23); Glucose 84 mg/dL (74-106)
[2024-03-06 08:07] LABS: BUN/Creatinine Ratio 19.2 (10.0-20.0)
[2024-03-06 11:16] LABS: Platelet Estimate Increased
[2024-03-06] MEDS ORDERED: ACETAMINOPHEN 325 MG TAB PO PRN ×2 (16:30→16:45)
[2024-03-06] MEDS ORDERED: HYDROcodone-ACET 5/325MG TAB PO PRN (16:30)
[2024-03-06] MEDS ORDERED: SODIUM CHLORIDE 0.9% 1,000 ML IV SCH ×2 (16:30→16:45)
[2024-03-06] MEDS ORDERED: MORPHINE SULFATE INJ 2 MG/ml SYRG IV PRN ×2 (16:30→16:45)
[2024-03-06] MEDS ORDERED: ONDANSETRON HCL 4 MG/2 ML VIAL IV PRN ×2 (16:30→16:45)
[2024-03-06] MEDS ORDERED: NITROGLYCERIN 0.4 MG SL TAB SL PRN ×2 (16:30→16:45)
[2024-03-06] MEDS ORDERED: DOCUSATE SOD 100 MG CAP PO PRN ×2 (16:30→16:45)
[2024-03-06 19:30] VITALS: O2SAT 97
[2024-03-06] MEDS: POTASSIUM EFFERVESENT TAB 25 MEQ PO ONE (21:14)
[2024-03-06] MEDS: SODIUM CHLORIDE 0.9% 1,000 ML IV SCH (21:15)
[2024-03-06] MEDS ORDERED: ASCORBIC ACID 500 MG TAB PO SCH (22:00)
[2024-03-06] MEDS: METOPROLOL TARTRATE 25 MG TAB PO SCH (22:00)
[2024-03-06] MEDS: FERROUS SULFATE 325mg EC TAB PO SCH (22:10)
[2024-03-06] MEDS: PANTOPRAZOLE 40 MG TAB PO SCH (22:11)
[2024-03-06] MEDS: APIXABAN 5 MG TAB PO SCH (22:11)
[2024-03-06] MEDS: ASCORBIC ACID 500 MG TAB PO SCH (22:12)
[2024-03-07 06:37] LABS: Basophils # (auto) 0.1 10 ^3/uL (0-0.2); Hemoglobin 13.5 g/dL (12.2-16.2)
[2024-03-07 06:45] LABS: Basophils % (auto) 0.4 % (0.0-2.0); Eosinophils # (auto) 0.1 10 ^3/uL (0-0.8); Eosinophils % (auto) 0.5 % (0.0-7.0); Lymphocytes # (auto) 1.4 10 ^3/uL (0.4-5.4); Lymphocytes % (auto) 7.2 % (10.0-50.0); Mean Corpuscular Hemoglobin 29.9 pg (28.0-32.0); Mean Corpuscular Hgb Conc. 33.7 g/dL (32.0-36.0); Mean Corpuscular Volume 88.8 fL (80.0-100.0); Monocytes # (auto) 2.6 10 ^3/uL (0-1.3); Neutrophils # (auto) 15.8 10 ^3/uL (1.6-8.6); Neutrophils % (auto) 78.9 % (37.0-80.0); Nucleated Red Blood Cells % 0.1 %; Red Cell Distribution Width 15.7 % (11.8-14.3)
[2024-03-07 07:00] LABS: Albumin 2.7 g/dL (3.2-4.8); Alkaline Phosphatase 89 U/L (46-116); Anion Gap 9 (5-15); Aspartate Aminotransferase 9 U/L (13-40); BUN/Creatinine Ratio 19.3 (10.0-20.0); Bilirubin, Total 0.2 mg/dL (0.2-1.0); Calcium 8.8 mg/dL (8.7-10.4); Carbon Dioxide 28 mmol/L (20-30); Chloride 100 mmol/L (98-107); Glucose 86 mg/dL (74-106); Potassium 3.5 mmol/L (3.5-5.1); Sodium 137 mmol/L (136-145); Total Protein 4.8 g/dL (5.7-8.2)
[2024-03-07 07:11] LABS: Alanine Aminotransferase < 9 U/L (7-40); Blood Urea Nitrogen 37 mg/dL (9-23)
[2024-03-07] MEDS ORDERED: ZINC SULFATE 220mg CAP or TAB PO SCH (10:00)
[2024-03-07] MEDS: amLODIPine BESYLATE 5 MG TAB PO SCH (10:00)
[2024-03-07] MEDS: ASCORBIC ACID 500 MG TAB PO SCH (10:00)
[2024-03-07] MEDS ORDERED: MULTIPLE VITAMIN TAB PO SCH (10:00)
[2024-03-07] MEDS: ZINC SULFATE 220mg CAP or TAB PO SCH (10:43)
[2024-03-07] MEDS: MULTIPLE VITAMIN TAB PO SCH (10:43)
[2024-03-07] MEDS ORDERED: SUCR1TAB PO (11:01)
[2024-03-07] MEDS ORDERED: FERR325T24 PO (11:01)
[2024-03-07] MEDS ORDERED: OXYB5TAB14 PO (11:04)
[2024-03-07 13:00] VITALS: PULSE 110; PULSE 92; RESP 16; RESP 9; O2SAT 97
[2024-03-07 14:19] LABS: Urine Bacteria None Seen /hpf (None Seen)
[2024-03-07 15:01] LABS: Urine Blood Negative /uL (Negative); Urine Budding Yeast OCCASIONAL /hpf (None Seen); Urine Clarity Clear (Clear); Urine Color Yellow (Yellow); Urine Protein, UAD 1+ (Negative); Urine Specific Gravity 1.018 (1.001-1.035); Urine Urobilinogen Normal (Negative); Urine WBC 4 /hpf (0 - 5); Urine pH 5.5 (5.0-9.0)
[2024-03-07] MEDS: PIPERACILLIN-TAZOB 3.375GM 100 ML IV ONE (15:55)
[2024-03-07 18:51] LABS: Sodium Urine < 10 mmol/L (40-220)
[2024-03-07 18:56] LABS: Protein, Urine 52.9 mg/dL (0.0-11.9)
[2024-03-07 18:59] LABS: Creatinine, Urine 105.78 mg/dL (30.0-125.0)
[2024-03-07 19:40] VITALS: PULSE 92; RESP 13; O2SAT 95
[2024-03-07] MEDS: HYDROcodone-ACET 5/325MG TAB PO PRN (21:41)
[2024-03-07] MEDS: PIPERACILLIN-TAZOB 3.375GM 100 ML IV SCH (21:41)
[2024-03-08] VITALS (9 sets, daily range): BP systolic 93–108; BP diastolic 46–62; PULSE 72–90; RESP 16–19; TEMP 97.3–98.2; O2SAT 94–98
[2024-03-08 07:25] LABS: Hemoglobin 12.1 g/dL (12.2-16.2)
[2024-03-08 07:30] LABS: Hematocrit 35.8 % (36.0-46.0); Mean Corpuscular Hemoglobin 30.4 pg (28.0-32.0); Mean Corpuscular Hgb Conc. 33.8 g/dL (32.0-36.0); Mean Corpuscular Volume 89.7 fL (80.0-100.0); Red Blood Cells 3.99 10^6/uL (4.0-5.20); Red Cell Distribution Width 15.7 % (11.8-14.3); White Blood Cell 7.7 10^3/uL (4.4-10.8)
[2024-03-08 07:33] LABS: Band Neutrophils % (manual) 0; Basophils % (manual) 0 (0.0-2.0); Blast Cells 0; Metamyelocytes % 0; Myelocytes % 0; Promyelocytes % 0
[2024-03-08 07:45] LABS: Albumin 2.2 g/dL (3.2-4.8); Alkaline Phosphatase 68 U/L (46-116); Anion Gap 6 (5-15); Aspartate Aminotransferase < 8 U/L (13-40); BUN/Creatinine Ratio 20.9 (10.0-20.0); Bilirubin, Total 0.2 mg/dL (0.2-1.0); Blood Urea Nitrogen 31 mg/dL (9-23); Calcium 8.3 mg/dL (8.7-10.4); Carbon Dioxide 28 mmol/L (20-30); Chloride 104 mmol/L (98-107); Glucose 95 mg/dL (74-106); Potassium 3.3 mmol/L (3.5-5.1); Sodium 138 mmol/L (136-145)
[2024-03-08 07:52] LABS: Alanine Aminotransferase < 9 U/L (7-40)
[2024-03-08 08:15] LABS: Eosinophils % (manual) 1 (0-7); Lymphocytes % (manual) 26 (10.0-50.0); Monocytes % (manual) 20 (0-12); Reactive Lymphocytes 7
[2024-03-08 08:16] LABS: Platelet Estimate Increased
[2024-03-08] MEDS: LORazepam 0.5 MG TAB PO PRN (20:43)
[2024-03-08] MEDS ORDERED: LORazepam 0.5 MG TAB PO ONE (22:00)
[2024-03-09] VITALS (8 sets, daily range): BP systolic 110–125; BP diastolic 51–80; PULSE 61–124; RESP 16–18; TEMP 97.5–98; O2SAT 92–98
[2024-03-09 06:55] LABS: Albumin 2.3 g/dL (3.2-4.8); Alkaline Phosphatase 66 U/L (46-116); Anion Gap 5 (5-15); Aspartate Aminotransferase 10 U/L (13-40); BUN/Creatinine Ratio 21.3 (10.0-20.0); Bilirubin, Total 0.2 mg/dL (0.2-1.0); Blood Urea Nitrogen 26 mg/dL (9-23); Calcium 8.5 mg/dL (8.5-10.1); Carbon Dioxide 28 mmol/L (20-30); Chloride 108 mmol/L (98-107); Glucose 90 mg/dL (74-106); Potassium 3.4 mmol/L (3.5-5.1); Sodium 141 mmol/L (136-145); Total Protein 4.1 g/dL (5.7-8.2)
[2024-03-09 07:02] LABS: Alanine Aminotransferase < 9 U/L (7-40)
[2024-03-09 07:16] LABS: Basophils # (auto) 0.1 10 ^3/uL (0-0.2); Basophils % (auto) 0.9 % (0.0-2.0); Eosinophils # (auto) 0.1 10 ^3/uL (0-0.8); Eosinophils % (auto) 0.8 % (0.0-7.0); Hematocrit 36.6 % (36.0-46.0); Hemoglobin 12.3 g/dL (12.2-16.2); Lymphocytes # (auto) 1.8 10 ^3/uL (0.4-5.4); Lymphocytes % (auto) 15.3 % (10.0-50.0); Mean Corpuscular Hgb Conc. 33.6 g/dL (32.0-36.0); Mean Corpuscular Volume 89.3 fL (80.0-100.0); Monocytes # (auto) 1.2 10 ^3/uL (0-1.3); Monocytes % (auto) 10.4 % (0.0-12.0); Neutrophils # (auto) 8.5 10 ^3/uL (1.6-8.6); Neutrophils % (auto) 72.6 % (37.0-80.0); White Blood Cell 11.8 10^3/uL (4.4-10.8)
[2024-03-09] MEDS: POTASSIUM EFFERVESENT TAB 25 MEQ PO ONE (13:50)
[2024-03-10 01:00] VITALS: BP 113/52; PULSE 95; RESP 19; TEMP 98.4; O2SAT 97
[2024-03-10 05:00] VITALS: BP 121/64; PULSE 98; RESP 15; TEMP 98.4; O2SAT 93
[2024-03-10 08:00] VITALS: BP 136/77; PULSE 105; RESP 18; TEMP 98.7; O2SAT 93
[2024-03-10 08:28] VITALS: BP 110/51; PULSE 93
== END 2024-03-10 08:30 | disposition hospice, home (50) | DRG 682 ==
LOC: ER 06:09 → EDBD 06:09 → TELE 16:23 → ER 16:23 → TELE-EAST 03-07 23:50
PROVIDERS: ADMIT Internal Medicine; ATTEND Internal Medicine
DX: N17.0 Acute kidney failure with tubular necrosis (principal); I50.33 Acute on chronic diastolic (congestive) heart failure; I13.0 Hypertensive heart and chronic kidney disease with heart failure and stage 1 through stage 4 chronic kidney disease, or unspecified chronic kidney disease; I82.432 Acute embolism and thrombosis of left popliteal vein; E87.1 Hypo-osmolality and hyponatremia; S00.83XA Contusion of other part of head, initial encounter; I27.20 Pulmonary hypertension, unspecified; W01.0XXA Fall on same level from slipping, tripping and stumbling without subsequent striking against object, initial encounter; E87.6 Hypokalemia; D72.829 Elevated white blood cell count, unspecified; N18.32 Chronic kidney disease, stage 3b; E86.1 Hypovolemia; F41.1 Generalized anxiety disorder; Z86.718 Personal history of other venous thrombosis and embolism; Z79.899 Other long term (current) drug therapy; Z79.01 Long term (current) use of anticoagulants; Z82.49 Family history of ischemic heart disease and other diseases of the circulatory system; Y93.89 Activity, other specified; Y92.89 Other specified places as the place of occurrence of the external cause; Y99.8 Other external cause status
CPT/HCPCS: 36415; 70450; 71045; 80048; 80053; 81001; 82270; 82570; 84156; 84300; 84484; 85007; 85025; 85027; 85610; 85730; 87045; 87081; 87427; 93005; 96360; G0378; J2543